=== PATIENT | male | born 1955 | race Caucasian/White ===

== ENCOUNTER 2019-02-22 09:28 | Day surgery (SDC) | payer OTHER ==
[~2019-02-22] VITALS: Ht 193 cm; Wt 135.2 kg
[~2019-02-22 09:28] MED LIST: ALDACTONE25 MG PO; ALLOPURINOL 10100 M1 PO; ARTHRITIS PAIN650 M2 PO; ASPIRIN EC81 M1 PO; ATENOLOL 100MG100 M2 PO; ATENOLOL 25 MG25 M1 PG; CARDIZEM CD120 MG PO; CARVEDILOL12.5 MG PO; CARVEDILOL6.25 MG PO; CLEOCIN HCL300 MG PO; COUMADIN 5 MG TA5 M1 PO; COZAAR 25 MG TA25 MG PO; DIASTAT2.5 MG PO; DIAZEPAM 2MG TAB2 MG PO; DIOVAN 80 MG TA80 M1 PO; DIOVAN PO; DIOVAN160 MG PO; GLUCOPHAGE500 MG PO; HTN MED; HYDROCHLOROTHIA25 M1 PO; KLOR-CON 1010 MEQ PO; LANTUSSOLASTAR SUBQ; LASIX 40 MG TAB40 M1 PO; LISINOPRIL; NEURONTIN800 MG PO; NORCO 5-325 TA1 EACH PO; NORVASC5 M1 PO; NOVOLOG100 UNIT/1 SUBQ; OXECTA7.5 MG PO; OXYCODONE; PENICILLIN VK500 M1 PO; PERCOCET 5-3251 EACH PO; PERCOCET 7.5-51 EACH PO; POTASSIUM20 PO; PRADAXA150 MG PO; PROAIR HFA8.5 GM INH; TRAMADOL 50 MG50 MG PO; TRICOR145 MG PO; ULTRAM 50MG TAB50 MG PO
[2019-02-22 10:15] VITALS: BP 142/88
--- NOTE | 2019-02-26 06:11 | O ---
[address] [place] [address] OPERATIVE REPORT Name: SIOMARA ALVAREZ Room #: DEP [facility]#: [id number] Admission: 02/22/19 Attend Phys: Efrain Barnes MD Discharge: 02/22/19 Date of : 55 Report #: [id number] THIS REPORT FOR: //name// CC: Dr. Clem Barnes DATE OF SERVICE: 02/22/2019 PREOPERATIVE DIAGNOSES: Right lower lid lesion with nasolacrimal duct obstruction. 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 PROCEDURE: Excision of lesion of right lower lid with myocutaneous flap repair of defect, silicone lacrimal intubation, and nasal surgical video endoscopy. SURGEON: Efrani Barnes MD. POWER REACTOR OPERATOR: None. ANESTHESIA: General. COMPLICATIONS: None. INDICATIONS FOR SURGERY: This pleasant 63-year-old gentleman has a cystic lesion in his medial right lower lid directly overlying his inferior canaliculus and lacrimal outflow tract inducing a secondary lacrimal outflow obstruction. He presents today for excision of this lesion with repair of that ensuing defect, silicone lacrimal intubation of his lacrimal outflow tract planned as well in order to limit his risk for chronic irreversible ____. Informed consent was obtained to include but not limited to the potential risk for loss of vision, bleeding, infection, failure to improve the problem, the potential need for further surgery or treatment. DESCRIPTION OF PROCEDURE: The patient was taken to the operating room, where general anesthesia was administered. The right medial canthal area was then anesthetized with Xylocaine with epinephrine mixed with Marcaine and Wydase. The lateral wall of the nose was then anesthetized with the same anesthetic mixture. Afrin-soaked cottonoids were then placed on the right side of the nose. The patient was subsequently prepped and draped in the usual sterile fashion. The right lower lid was then everted and the lesion inspected. An incision was then made 360 degrees around the base of the lesion and the entire cyst wall excised. The cyst was removed en bloc. The dissection was then on to the tarsal plate and the canalicular epithelium, but did not violate the [facility] [address] [place] [address] OPERATIVE REPORT Name: SIOMARA ALVAREZ Room #: DEP [facility] M.R.#: [id number] Admission: 02/22/19 Attend Phys: Efrain Barnes MD Discharge: 02/22/19 Date of : 55 Report #: [id number] canaliculus per se. The superior and inferior puncta were then dilated. A myocutaneous flap was then developed inferomedially and rotated superolaterally. The flap was then secured with interrupted 6-0 plain gut sutures. Garcia tubes were then passed through the inferior canalicular system down the nasolacrimal duct into the inferior meatus. The cottonoids were removed from the nose and the nasal vault inspected with the video endoscope. The Garcia tube was then retrieved under the inferior turbinate posteriorly with the video endoscope and a Garcia hook. The superior system was similarly cannulated and the Garcia tube retrieved in a similar manner. Tension on the tube was set with 3 square throws. The tube was then secured to the lateral wall of the nose with one 5-0 Prolene suture. The wound was then cleaned and dressed with erythromycin ophthalmic ointment. The patient subsequently transported to the recovery area having tolerated the procedure well with no anesthetic or operative complications being noted. <ELECTRONICALLY SIGNED> By: Efrain Barnes MD 02/26/19 0611 1028 1131 Efrain Barnes MD /nt
--- NOTE | 2019-02-26 17:07 | PATH ---
[facility] [address] [place] [address] PATHOLOGY RPT PROCEDURE Name: ELIAZAR MEJIAS Room #: DEP [facility].#: [id number] Admission: 02/22/19 Date of : 55 Discharge: 02/22/19 Report #: [id number] Path Case #: [id number] L[facility] Accession Number: [id number] . 01 Material submitted: . lid - LESION RIGHT LOWER LID. Modifiers: right, lower . 01 Clinical history: . Cysts of right lower eyelid . 02 Diagnosis: Skin, lesion right lower lid, excision: - Eccrine hidrocystoma. - Negative for malignancy. - Completely excised. . (IUV:mml; 02/26/2019) QL 02/26/2019 1420 Local . 02 Electronically signed: . Rekha Carrillo MD, Pathologist NPI- [id number] . 01 Gross description: . Received in formalin labeled "Eliazar Mejias, lesion right lower lid," is an ovoid segment of skin measuring 0.5 x 0.5 x 0.3 cm in greatest dimensions. The epidermal surface is raised and pale quesada in appearance. The surgical margin is inked, and the specimen is bisected and submitted entirely in cassette A1. Sectioning reveals a cystic interior cavity filled with clear, colorless fluid. (DAC; 02/23/2019) XDC/XDC 02/23/2019 1103 Local . 02 Pathologist provided ICD-10: D04.112 . 02 CPT . 638386 Specimen Comment: A courtesy copy of this report has been sent to Specimen Comment: [phone], . Specimen Comment: Report sent to / DR NICHOLSON Performed at: 01 [place] [id number] [id number] MD Martin De La O MD Phone: [phone] Performed at: 02 [facility] [address] [place] [address] PATHOLOGY RPT PROCEDURE Name: ELIAZAR MEJIAS [facility] [id number] Admission: 02/22/19 Date of : 55 Discharge: 02/22/19 Report #: [id number] Path Case #: [id number] [address] [place] [address] [id number] MD Rekha Carrillo MD Phone: [phone]
== END 2019-02-22 11:40 | disposition home or self-care (01) ==
LOC: OR 09:28 → TBA 09:34 → OR 11:40
DX: D23.112 Other benign neoplasm of skin of right lower eyelid, including canthus (principal); H04.551 Acquired stenosis of right nasolacrimal duct; I10 Essential (primary) hypertension; E11.9 Type 2 diabetes mellitus without complications; E78.5 Hyperlipidemia, unspecified; G62.9 Polyneuropathy, unspecified; K75.9 Inflammatory liver disease, unspecified; Z98.890 Other specified postprocedural states; Z79.4 Long term (current) use of insulin; Z79.899 Other long term (current) drug therapy; Z90.5 Acquired absence of kidney; Z95.810 Presence of automatic (implantable) cardiac defibrillator; Z85.528 Personal history of other malignant neoplasm of kidney
CPT/HCPCS: 50010; 50101; 50386; 50398; 51636; 51777; 56528; 56531; 62110; 62900; 64037; 70005

== ENCOUNTER 2019-05-20 12:20 | Inpatient (IN) | payer OTHER ==
[~2019-05-20] VITALS: Ht 193 cm; Wt 136.1 kg
--- NOTE | ~2019-05-20 | H ---
[facility] [address] [place] [address] HISTORY AND PHYSICAL Name: SOIMARA ALVAREZ Room #: 170-2 ADM IN M.R.#: [id number] Admission: 05/20/19 Attend Phys: Nhi Davidson MD Discharge: Date of : 55 Report #: [id number] THIS REPORT FOR: //name// CC: Clem Davidson DATE OF SERVICE: 05/20/2019 PRIMARY CARE PHYSICIAN: Dr. Clem Alcantar at [facility]. Regional Sales Coordinator at [facility]. CHIEF COMPLAINT: 1. "I have an ulcer on the foot for the last 4 months and my primary care physician referred me to fish hatchery worker; however, for the last one week, it has been significantly worse." 2. Fever and chills for the last 48 hours and increased pain in the foot. HISTORY OF PRESENT ILLNESS: The patient is a very pleasant 64-year-old gentleman with obesity, hypertension, diabetes mellitus type 2 and history of atrial fibrillation for which he had ICD implant placed and he also has cardiomyopathy history. He has been following with [facility] primary care and 4 months ago when he started noticing the ulcer on the right foot, his primary care physician referred him to the Podiatry at [facility]. The patient informs me that he has been seeing fish hatchery worker pretty regularly and last one month he has noticed an ulcer developing. He does not recall when the discoloration of the great toe happened; however, the swelling has progressively gotten worse and in last one week, he has been having fever, shaking chills or night sweats and also has not been feeling well with decreased appetite and significantly increased pain and therefore he came to the Emergency Room today. The patient informs me that for pain management, he was getting oxycodone and OxyContin from his neurosurgeon for his back; however, his neurosurgeon is not prescribing any more narcotics, so he has been off of narcotics for a long time. The patient denies any nausea, vomiting or diarrhea associated with this febrile illness. However, main concern is pain and fever and shaking chills and night sweats. Right now, he informs me that he is very uncomfortable in this Emergency Room bed and he would like to eat something as soon as possible and he also would like to use a bedside commode or the proper bathroom as he needs to micturate and he is unable to use urinal. Patient is very restless with the pain; however, is able to sit up by himself and is comfortable and communicating and is in no cardiopulmonary distress. The patient does not recall how bad is his diabetes control. He informs me that he has been keeping appointment with his primary care physician pretty regularly as well as with his fish hatchery worker as well at [facility]. The patient has not had any orthopnea or paroxysmal nocturnal dyspnea or leg edema and he denies any palpitations or any exertional chest pain or exertional dyspnea either. The patient denies any [facility] [address] [place] [address] HISTORY AND PHYSICAL Name: SIOMARA ALVAREZ Room #: 170-2 ADM IN ..#: [id number] Admission: 05/20/19 Attend Phys: Nhi Davidson MD Discharge: Date of : 55 Report #: [id number] hematochezia, hematuria or melena. He has not had any problems with any constipation or diarrhea either or dysuria, frequency or urgency of urination. REVIEW OF SYSTEMS: Also negative for weakness or numbness of any part of the body and denies any dizziness, lightheadedness, or syncopal episodes. PAST MEDICAL HISTORY: Significant for: 1. Type 2 diabetes mellitus and on insulin for a long time. 2. Hypertension. 3. Atrial fibrillation, now with ICD implant placed. 4. Cardiomyopathy. 5. History of hepatitis C. 6. Obesity with BMI 36. PERSONAL AND SOCIAL HISTORY: The patient is a lifetime nonsmoker, but uses marijuana and last use was 2 months ago and he was drinking like a fish when he was a teenager; however, has not had any alcohol for last several years. ALLERGIES: THE PATIENT IS ALLERGIC TO NAPROXEN, however, does not recall the type of allergy he had. CURRENT MEDICATIONS: Insulin, allopurinol, gabapentin, amlodipine, losartan. He does not remember the dosage. He gets his medications from the pharmacy in [facility]. PAST SURGICAL HISTORY: Significant for lacrimal duct surgery in the right eye and ICD implant. FAMILY HISTORY: Significant for mother and father both and they both smoked up to 4 packs per day and the patient informs me that there are several siblings and he is the only one alive, but does not recall any cancer in the family and is unable to tell me any medical diagnosis family members have carried. REVIEW OF SYSTEMS: Please see HPI above, 10-point review of system was done and was negative for any cardiac, respiratory, GI, or PLANER OPERATOR / GRADER symptoms and denies any blurred vision, polyuria, polydipsia, and polyphagia either. PHYSICAL EXAMINATION: VITAL SIGNS: Temperature 39.8, heart rate 71, respirations 22, blood pressure 160/70, pulse oximeter 97% on room air. GENERAL: Alert and oriented to time, place and person, very pleasant, obese gentleman with a BMI of 36.5, sitting upright and is able to lie flat as well and he is in no acute distress. HEENT: Normocephalic, atraumatic. Pupils equally round, reactive to light. Conjunctivae clear. Sclerae nonicteric. Extraocular muscle movement intact. [facility] [place] [address] HISTORY AND PHYSICAL Name: SIOMARA ALVAREZ Room #: 170-2 [facility] M.R.[facility] [id number] Admission: 05/20/19 Attend Phys: Nhi Davidson MD Discharge: Date of : 55 Report #: [id number] Oropharynx is clear. Mucous membranes moist. NECK: Supple, no JVD, no lymphadenopathy, no thyromegaly. HEART: S1, S2, regular. No murmur, no S3, no S4. LUNGS: Clear to auscultation bilaterally without any crackles or wheezes. The patient has good air entry. ABDOMEN: Soft, nontender, nondistended, obese, normal active bowel sounds. No mass palpable on clinical examination. EXTREMITIES: The patient's left lower extremity with trace edema. SKIN: Exam is intact. Right lower extremity, the patient has gangrenous right toe and right foot is swollen at the dorsum as well as plantar surface with the ulcers noted on the plantar surface of the foot. Three different ulcers noted with no active drainage at the present time, but significant edema and erythema noted and the swelling extending all the way above the ankle and it is hard to evaluate pedal pulses, but skin is warm. Except the gangrenous toe, the gangrene is extending all the way up to the base of great toe. NEUROLOGIC: Nonfocal. LABORATORY DATA: 1. The patient has a WBC elevated at 20,600 with segmented neutrophil 92% and 1% band neutrophils, hemoglobin is 11.1, hematocrit 34.7, RDW elevated at 16.4. The red cell indices are within normal limits. Platelet count is 309. 2. Chemistries indicate sodium 129, potassium 3.7, chloride 94, bicarbonate 23, anion gap 12, BUN 28, creatinine 2.0, estimated GFR is 34, glucose is elevated at 430. Lactic acid is normal at 1.7, calcium 9.2, total bilirubin 1.0, AST 30, ALT 22, alkaline phosphatase 117. C-reactive protein is markedly elevated at 334.9, total protein 8.3, albumin 2.3. Urine culture is pending and the anaerobic culture, Gram stain, aerobic and anaerobic tissue culture is pending and blood culture is pending. 3. X-ray of the foot indicates extensive subcutaneous emphysema and soft tissue gas around the great toe extending along the medial margin of the foot into the mid foot and ulceration along the plantar medial aspect adjacent to the first metatarsophalangeal joint and osteomyelitis and there is no periosteal reaction to suggest osteomyelitis. There is a compression plate and screw transfixing the lateral malleolus about which the patient had not mentioned in the history taking. 4. Chest x-ray is pending at the time of dictation. An electrocardiogram is pending at the time of dictation. ASSESSMENT AND PLAN: 1. Right toe gangrene and right foot extensive cellulitis and possible osteomyelitis and abscess. 2. Poorly controlled diabetes mellitus. 3. Poorly controlled hypertension. 4. Acute renal insufficiency with likely component of underlying chronic kidney disease. 5. Anemia, likely anemia of chronic disease. [facility] [address] [place] [address] HISTORY AND PHYSICAL Name: SIOMARA ALVAREZ Room #: 170-2 ADM IN ..#: [id number] Admission: 05/20/19 Attend Phys: Nhi Davidson MD Discharge: Date of : 55 Report #: [id number] 6. History of cardiomyopathy with last echocardiogram that we have on record is from 2012 indicating ejection fraction of 20% with severe global dysfunction. 7. Abnormal sleep study untreated. 8. The patient wishes to be full code. PLAN: 1. The patient has been started on Zosyn and vancomycin in the Emergency Room after the blood cultures have been sent from the ER. I have ordered an arterial Doppler study to evaluate the circulatory status in right lower extremity. The patient is a very high risk for any peripheral arterial disease with longstanding poorly controlled diabetes as well as hypertension and cardiomyopathy as an underlying comorbidity. It does not appear that the patient is in acute CHF exacerbation by symptoms as well as by clinical exam. Pharmacy has been consulted for vancomycin dosing in the setting of acute renal insufficiency with underlying chronic kidney disease. 2. For diabetes, hemoglobin A1c has been requested and Lantus as well as sliding scale insulin high dose has been started. The patient has a normal anion gap and hyperglycemia, however, is contributing likely to the hyponatremia indicated on the chemistry. We will go ahead and repeat labs tomorrow morning and we will give gentle IV fluid with extreme caution, accurate intake and output as we do not have the most recent ejection fraction. The last echo is from 2012 as dictated above and echocardiogram and electrocardiogram have been requested. 3. For hypertension, the patient is on losartan as well as amlodipine. I would go ahead and put hydralazine as IV q. 6 hours p.r.n. and resume his amlodipine. I will hold losartan in the setting of creatinine being elevated at 2.0 with a GFR of 34 since we do not have his baseline creatinine and also MRI of the foot has been ordered as well. Infectious Disease and Orthopedic consult along with a wound care consult has been in place and full code order has been written and I would go ahead and put heparin 5000 b.i.d. for DVT prophylaxis and Pepcid renal dose for GI prophylaxis. Plan of care was discussed with the patient in detail. By: 1632 1659 Nhi Davidson MD /nt
[2019-05-20 12:27] VITALS: BP 160/70
[2019-05-20 13:36] LABS: HEMATOCRIT 34.7 % (42.0-52.0); HEMOGLOBIN 11.1 gm/dL (14.0-18.0); MCH 28.7 pg (26.0-34.0); MCHC 32.1 g/dL (28.0-37.0); MCV 89.5 fL (80.0-100.0); PLATELET COUNT 309 thou/uL (150-400); RBC 3.87 mil/uL (4.50-6.00); RDW 16.4 % (10.5-14.5); WBC 20.6 thou/uL (4.0-11.0)
--- NOTE | 2019-05-20 13:56 | NUR ---
NIGEL (S0) [phone] CONTACT INFO
[2019-05-20 13:57] LABS: CALCIUM 9.2 mg/dL (8.5-10.1); POTASSIUM 3.7 mmol/L (3.5-5.1)
[2019-05-20 14:00] LABS: ABSOLUTE NEUTROPHILS 19.2 thou/uL (1.4-8.2); ATYPICAL LYMPHS 1 %
[2019-05-20 14:01] LABS: ANISOCYTOSIS 1+
[2019-05-20 14:02] LABS: ALBUMIN 2.3 g/dL (3.4-5.0); TOTAL PROTEIN 8.3 g/dL (6.4-8.2)
[2019-05-20 16:22] LABS: URINE BILIRUBIN NEGATIVE (Negative); URINE BLOOD 3+ (Negative); URINE CLARITY CLEAR; URINE COLOR YELLOW; URINE GLUCOSE-RANDOM* 3+ (Negative); URINE KETONES NEGATIVE (Negative); URINE LEUKOCYTES NEGATIVE (Negative); URINE NITRITE NEGATIVE (Negative); URINE PROTEIN (DIPSTICK) 3+ (Negative)
[2019-05-20 16:36] LABS: CASTS None Seen /LPF (None Seen); MUCUS 0-3 Light strn/LPF (None Seen); SQUAMOUS 4-10 Moderate /LPF (0-3)
[2019-05-20 16:37] LABS: URINE RBC 3-10 Few /HPF (0-2)
[2019-05-20 16:38] LABS: BACTERIA 1-9 Few /HPF (None Seen); CRYSTALS None Seen /LPF (None Seen); URINE WBC 6-15 Few /HPF (0-5)
[2019-05-20 18:48] VITALS: BP 175/87
--- NOTE | 2019-05-20 21:00 | NUR ---
Pt. admitted to the unit from the emergency room accompanied by staff. He is alert and oriented. Admission assessment and history is completed. Bed alarm is on.
[2019-05-21 03:22] VITALS: BP 129/58
--- NOTE | 2019-05-21 04:51 | NUR ---
Pt. rested at short intervals during the night when checked on during frequent rounds. He has been medicated for c/o pain to his right great toe (see emar) with some relief of pain noted. Has several wounds to his right foot and it does have a strong foul odor present (see poc). Up to the bedside comode with stand by assist. Bed alarm is on.
--- NOTE | 2019-05-21 06:00 | NUR ---
Pt. bed alarm sounded as he was going to sit up at the side of the bed. When this nurse entered the room he became beligerent and said leave that thing off. Pt. is non-compliant with the bed alarm.
[2019-05-21 06:20] LABS: ABSOLUTE NEUTROPHILS 15.6 thou/uL (1.4-8.2); BASOPHILS 0.4 % (0.0-2.0); EOSINOPHILS 0.1 % (0.0-3.0); HEMATOCRIT 31.3 % (42.0-52.0); HEMOGLOBIN 10.2 gm/dL (14.0-18.0); LYMPHOCYTES 5.5 % (24.0-44.0); MCHC 32.5 g/dL (28.0-37.0); MCV 89.3 fL (80.0-100.0); MONOCYTES 4.8 % (1.0-8.0); PLATELET COUNT 260 thou/uL (150-400); POLYS 89.2 % (36.0-66.0); RBC 3.51 mil/uL (4.50-6.00); RDW 16.1 % (10.5-14.5); WBC 17.5 thou/uL (4.0-11.0)
[2019-05-21 06:39] LABS: ALBUMIN 1.9 g/dL (3.4-5.0); CALCIUM 8.2 mg/dL (8.5-10.1); CREATININE 1.8 mg/dL (0.7-1.3); MAGNESIUM 1.2 mg/dL (1.8-2.4); PHOSPHORUS 1.9 mg/dL (2.5-4.9); POTASSIUM 3.4 mmol/L (3.5-5.1); TOTAL BILIRUBIN 0.8 mg/dL (<0.1-1.0); TOTAL PROTEIN 7.3 g/dL (6.4-8.2)
[2019-05-21 08:00] VITALS: BP 159/82
--- NOTE | 2019-05-21 09:59 | NUR ---
Nutrition: pt admitted with right great toe ulcer/infection. Wound care consulted. PMH: HTN, IDDM (poorly controlled), hep C, cardiomyopathy, nephrectomy. BMI 36, obesity class 2. No recent weight changes. Decreased appetite past week reported. BG 142-303, A1C pending. Ate well this am, and was asking for more juice however RD discouraged due to BG. Does not follow diet at home and is not interested in education. Nsg reports pt beligerant and having difficulties with some cares. RD encouraged adequate protein foods/sources for wound healing. Refused ensure max. Consider low risk.
--- NOTE | 2019-05-21 10:24 | EKG ---
[place] [address] [facility] [place] [address] ELECTROCARDIOGRAM REPORT Name: SIOMARA ALVAREZ Room #: 455- ADM IN M.R.#: [id number] Admission: 05/20/19 Attend Phys: Nhi Davidson MD Discharge: Date of : 55 Report #: [id number] THIS REPORT FOR: //name// [facility] Test Date: 2019-05-21 Test Time: 08:52:59 Pat Name: SIOMARA ALVAREZ Department: Room: 455 P Gender: M General Counselor: Rubén FULLER : 1955 Requested By: Nhi Davidson Order Number: [id number] MD: Favian Morales Measurements Intervals [place] Rate: 72 P: 0 CA: 224 QRS: 265 QRSD: 153 T: 87 QT: 446 QTc: 489 Interpretive Statements Ventricular-paced rhythm No further analysis attempted due to paced rhythm Compared to ECG 09/24/2013 17:45:41 Ventricular pacing is now present Electronically Signed On 05-21-2019 10:24:19 HEAD SHIPPER by Favian Morales [email or web address] <ELECTRONICALLY SIGNED> By: Favian Morales MD, [facility] 05/21/19 [phone] Favian Morales MD, [facility] /EPI
--- NOTE | 2019-05-21 13:46 | 2DMMODE ---
[facility] [place] [address] 2 D/M-MODE ECHOCARDIOGRAM Name: SIOMARA ALVAREZ Stephany Room #: 455-P [facility] IN ..#: [id number] Admission: 05/20/19 Attend Phys: Nhi Davidson, Discharge: Date of : 55 Report #: [id number] THIS REPORT FOR: //name// APPROVED REPORT Study performed: 05/21/2019 12:10:37 EXAM: Comprehensive 2D, Doppler, and color-flow Echocardiogram Patient Location: Bedside Room #: [facility] Status: routine BSA: 2.61 HR: 76 bpm BP: 129/58 mmHg Other Information Study Quality: Technically Difficult Technically limited study due to body habitus, machine malfunction unable to finish optison images. Indications Diabetes Hypertension/HDD ICD Echo Enhancing Agent Indication: Endocardial border delineation Agent(s) / Amount(s) Used: Optison 4 cc 2D Dimensions RVDd: 50.70 mm IVSd: 14.90 (7-11mm) LVOT Diam: 23.81 (18-24mm) LVDd: 54.00 mm PWd: 14.61 (7-11mm) Ascending Ao: 37.56 (22-36mm) LVDs: 38.54 (25-40mm) Aortic Root: 36.92 mm IVC: 28.00 mm Volumes Left Atrial Volume (Systole) Single Plane 4CH: 105.96 mL Single Plane 2CH: 119.60 mL LA ESV Index: 45.00 mL/m2 Aortic Valve AoV Peak Dc.: 1.48 m/s [facility] [address] [place] [address] 2 D/M-MODE ECHOCARDIOGRAM Name: SIOMARA ALVAREZ Stephany Room #: 455-P [facility]#: [id number] Admission: 05/20/19 Attend Phys: Nhi Davidson, Discharge: Date of : 55 Report #: [id number] AO Peak Gr.: 8.75 mmHg LVOT Max P.39 mmHg LVOT Max V: 0.92 m/s HAILE Vmax: 2.77 cm2 Mitral Valve MV Decel. Time: 191.73 ms MV E Max Dc.: 1.35 m/s IVRT: 48.44 ms Pulmonary Valve PV Peak Dc.: 0.82 m/s PV Peak Gr.: 2.68 mmHg Tricuspid Valve TR Peak Dc.: 3.08 m/s RAP Estimate: 15.00 mmHg TR Peak Gr.: 37.91 mmHg PA Pressure: 53.00 mmHg Left Ventricle Left ventricle is borderline dilated. There is normal LV segmental wall motion. Moderate concentric left ventricular hypertrophy. The left ventricular systolic function is normal. The left ventricular ejection fraction is within the normal range. LVEF is 55-60%. This study is not technically sufficient to allow evaluation of the LV diastolic function due to atrial fibrillation. Right Ventricle Right ventricle is moderately dilated. Pacing wires in the right heart The right ventricular systolic function is normal. Atria Left atrium is moderate to severely dilated. Right atrium is severely dilated. Aortic Valve The aortic valve is normal in structure. Mild aortic regurgitation. There is no aortic valvular stenosis. Mitral Valve The mitral valve is normal in structure. Mild mitral regurgitation. No evidence of mitral valve stenosis. Tricuspid Valve The tricuspid valve is normal in structure. Moderate tricuspid regurgitation. PAP is estimated at 50 mmHg. Pulmonic Valve [facility] [address] [place] [address] 2 D/M-MODE ECHOCARDIOGRAM Name: SIOMARA ALVAREZ Stephany Room #: 455-P [facility] IN .R.#: [id number] Admission: 05/20/19 Attend Phys: Nhi Davidson, Discharge: Date of : 55 Report #: [id number] Pulmonic valve is not well visualized. There is no pulmonic valvular regurgitation visualized. Great Vessels The aortic root is normal in size. IVC is dilated and collapses <50% with inspiration. Pericardium There is no pericardial effusion. <Conclusion> The left ventricular systolic function is normal. There is normal LV segmental wall motion. LVEF is 55-60%. Both atria are moderate to severely dilated. The aortic valve is normal in structure. Mild aortic regurgitation, no stenosis. The mitral valve is normal in structure. Mild mitral regurgitation. Moderate tricuspid regurgitation. Pulmonary artery pressure estimated at 50 mmHg. There is no pericardial effusion. <ELECTRONICALLY SIGNED> By: Favian Morales MD, FACC 05/21/19 1345 1345 1345 Favian Morales MD, FAC /INF
--- NOTE | 2019-05-21 14:10 | NUR ---
PT ADMITTED RELATED TO RIGHT GREAT TOE INFECTION. CM REVIEWED CHART AND SPOKE WITH CARE TEAM. CM MET WITH PT AT BEDSIDE THIS DAY. PT IS A&O X4. CM ROLE INTRODCUED. PT INDICATED THAT HE RESIDES IN AN APARTMENT AT [facility]. 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 PT INDICATED HE HAD GOTTEN HIS SCOOTER THROUGH THE SCOOTER STORE IN 2010 AND THAT THE BATTERIES HAD RECENTLY GONE OUT ON IT. PT INDICATED HE HOPES TO BE ABLE TO RETURN HOME ONCE MEDICALLY STABLE. CM TO FOLLOW INDICATED WITH DC PLANNING.
[2019-05-21 20:05] VITALS: BP 141/51
--- NOTE | 2019-05-21 20:10 | NUR ---
Assumed pt care this am, pt refused to have bed alam on and would become beligerent. Wound care done everal times during the day. MRI not doene due to implanted device. Pt would have tantrums and wound want his IV off, not take his meds, or wanting to walk out since he was not getting what he wants when he wants. Explained the process of AMA, pt was seen by Mary Jo for surgery adair, consent signed. POC followed, [id number] to the night nurse.
[2019-05-22 05:30] LABS: ABSOLUTE NEUTROPHILS 14.7 thou/uL (1.4-8.2); BASOPHILS 0.6 % (0.0-2.0); EOSINOPHILS 0.5 % (0.0-3.0); HEMATOCRIT 30.5 % (42.0-52.0); HEMOGLOBIN 9.9 gm/dL (14.0-18.0); LYMPHOCYTES 7.4 % (24.0-44.0); MCH 29.2 pg (26.0-34.0); MCHC 32.5 g/dL (28.0-37.0); MCV 89.9 fL (80.0-100.0); MONOCYTES 4.5 % (1.0-8.0); PLATELET COUNT 301 thou/uL (150-400); RDW 16.3 % (10.5-14.5); WBC 16.9 thou/uL (4.0-11.0)
--- NOTE | 2019-05-22 06:45 | NUR ---
PROGRESS PT A/O X4 IRRITABLE. FALL PRECAUTIONS IN PLACE PT IS A FALL RISK D/T FALL AT HOME. IV ANTIBIOTICS GIVEN ORDERED. TAKING FENTANYL FOR PAIN , OXYCODONE BEFORE NPO. ACCUCHECKS AND SSI CONTINUE. TO HAVE PROCEDURE TODAY CONSENT ON FRONT OF CHART.
[2019-05-22 07:40] VITALS: BP 134/71
--- NOTE | 2019-05-22 15:51 | NUR ---
Assumed pt care at 7am.Pt in chair very irritable and cursing at alltimes. Assessment completed.vss.pt c/o rt foot pain rated 9/10. Pain med given and no relief.Additional pain med given.Pt has complaining kennedi stated that he wanted to leave ama but after rn discussed the care option with the pt,he decided to stay.Received call from operating room that pt will be going for surgery between 3&4pm.Around 1438,pt left per bed for surgery.Will continue to monitor.
--- NOTE | 2019-05-22 19:27 | O ---
[facility] [address] [address] OPERATIVE REPORT Name: SIOMARA ALVAREZ Room #: 455-P ADM IN M.R.#: [id number] Admission: 05/20/19 Attend Phys: Nhi Davidson MD Discharge: Date of : 55 Report #: [id number] THIS REPORT FOR: //name// CC: Clem Davidson DATE OF SERVICE: 05/22/2019 SERVICE: Orthopedics. FACILITY: [facility]. SURGEON: Marcel Camargo MD DATA ANALYST: Guera Hardy NP. PREOPERATIVE DIAGNOSIS: Gangrene, right first toe with first ray osteomyelitis involving the metatarsal. POSTOPERATIVE DIAGNOSIS: Gangrene, right first toe with first ray osteomyelitis involving the metatarsal. PROCEDURES: 1. Right open first ray amputation. 2. Application of negative pressure wound VAC to right foot, 11 cm x 5 cm. COMPLICATIONS: None. DRAINS: None. SPECIMENS: 1. Great toe for permanent 2. Tissue and swab cultures. HISTORY: The patient is a 64-year-old gentleman with uncontrolled diabetes, who had a right forefoot diabetic wound that led to gangrene of the first toe and first ray osteomyelitis. He had a CT scan, which showed some gas in the soft tissues and osteomyelitis. We had discussion about treatment options. I recommended first toe/ray amputation as a minimum. We also discussed mid foot transmetatarsal amputation as well as below-knee amputation. He had vascular studies, which showed biphasic flow and suggested that he could heal the wound distally. He was interested in only resecting the necrotic tissue and preserving all toes that were not currently involved and he gave consent to perform first toe amputation, second toe amputation only if there was an infection and necrosis of the second toe or ray. That being said, we made plans for first ray amputation, debridement and application of wound VAC. [facility], [facility] [address] [place] [address] OPERATIVE REPORT Name: SIOMARA ALVAREZ Room #: 455-P [facility] IN [facility].#: [id number] Admission: 05/20/19 Attend Phys: Nhi Davidson MD Discharge: Date of : 55 Report #: [id number] benefits, alternatives and indications of surgery were discussed with him in detail. Risks include but not limited to pain, bleeding, infection, persistence, need for further surgery including higher level of amputation up to and including below-knee amputation, need for extended period of wound care as well as rehabilitation and recovery as well as complications related to anesthesia such as stroke, heart attack, pulmonary complications, thromboembolic disease and . Despite these risks, he wished to proceed. PROCEDURE IN DETAIL: After the right lower extremity was correctly identified in preoperative holding area as the operative extremity, the patient was taken to the operating room where general anesthesia was induced without complication. He was padded appropriately. Prophylactic antibiotics are being initiated as an inpatient treatment and had been redosed as indicated. Right leg was prepped and draped in standard sterile fashion. Time-out procedure was performed. The necrotic great toe was excised sharply and then dissection was taken down to the first metatarsal, which was dissected to proximal healthy appearing bone and then a bone cutter was used to resect the first metatarsal at the proximal metaphysis and then it was contoured. The skin was excised as well. There was a primarily medial and plantar defect and there was pus in this area and the pus was explored and decompressed and then irrigated. All necrotic tissue was excised sharply and/or with a rongeur. I preserved as much healthy and intact skin and soft tissue as possible. There was no violation of the second metatarsal or the second metatarsophalangeal joint. The second, third, fourth and fifth toes were healthy in appearance. After the sharp excision was completed, hemostasis was achieved. The wound was copiously. We thoroughly explored all areas to make sure there was no additional purulence. There was some purulence that had initially been present plantarly and then extending proximally. This was all decompressed and irrigated and uncovered. After the wound was clean, there was no residual foul smelling tissue. There was no residual necrotic tissue. I was able to get a deep layer closed with #1 PDS over the first metatarsal remnant, which suggested that there is a possibility for wound care to allow for progressive healing of this wound. After this was completed, a silver impregnated negative pressure wound VAC was applied. The surface area measuring 11 cm x 5 cm. After this was applied, successful negative pressure was achieved and the wound was dressed. The patient was awakened from anesthesia and taken to recovery room in stable condition. No complications. All counts correct. <ELECTRONICALLY SIGNED> By: Marcel Camargo MD 05/22/19 [id number] 184 Marcel Camargo MD /nt
[2019-05-22 19:43] VITALS: BP 133/69
--- NOTE | 2019-05-22 21:51 | HC ---
[facility] [address] [place] [address] CONSULTATION Name: SIOMARA ALVAREZ Room #: 455-P [facility] IN .R.#: [id number] Admission: 05/20/19 Attend Phys: Nhi Davidson MD Discharge: Date of : 55 Report #: [id number] THIS REPORT FOR: //name// CC: Clem Davidson DATE OF SERVICE: 05/21/2019 INFECTIOUS DISEASE CONSULTATION REASON FOR CONSULTATION: Evaluate right foot gangrene. HISTORY OF PRESENT ILLNESS: A 64-year-old diabetic with peripheral vascular disease and peripheral neuropathy in addition to cardiomyopathy. Over the last 4 months, he has had ulcer to the plantar midfoot of his right foot. He had been seeing Podiatry for this wound care. Last week, he developed increased pain, swelling and discoloration of his right first toe. He noted that his blood glucose levels had been reasonable. However, he developed fever and chills and presented to the Emergency Room for further evaluation. He was diagnosed with gangrene and was seen by Orthopedic Surgery. Plan is for surgery to be performed tomorrow. He denies any nausea, vomiting or diarrhea. No dysuria or frequency. No cough or sputum production. REVIEW OF SYSTEMS: A 10-point review of system was negative other than what has been described above. PAST MEDICAL HISTORY: Diabetes; hypertension; atrial fibrillation; cardiomyopathy, ICD implant; hepatitis C; obesity; lacrimal duct surgery, right eye and chronic kidney disease with unilateral solitary kidney. FAMILY HISTORY: Noncontributory. SOCIAL HISTORY: Uses marijuana, past alcohol abuse. ALLERGIES: NAPROSYN. MEDICATIONS: As noted on his JUL, which were reviewed including vancomycin and Zosyn. PHYSICAL EXAMINATION: VITAL SIGNS: Afebrile with maximum temperature of 103 degrees yesterday, hemodynamically stable. GENERAL: Alert and cooperative. No acute distress. EXTREMITIES: Right foot had gangrene with black toe and tissues over the first metatarsal head. There was odorous drainage. He had erythema extending over the forefoot up to the ankle. There was a blister and ulceration over the [facility] [address] [place] [address] CONSULTATION Name: SIOMARA ALVAREZ Stephany Room #: 455-P [facility] IN M.R.#: [id number] Admission: 05/20/19 Attend Phys: Nhi Davidson MD Discharge: Date of : 55 Report #: [id number] plantar aspect of his mid foot medially. He had diminished pulses in his foot. Decreased sensation to touch. Pulses were palpable in the popliteal and femoral region. He had 2+ edema below the knee. EYES: Without scleral icterus. MOUTH: Without mucositis. NECK: Supple. LUNGS: Clear. HEART: Regular, without murmur, gallop or rub. ABDOMEN: Soft and nontender with no hepatosplenomegaly or mass appreciated. GENITORECTAL: Not performed. NEUROLOGIC: Cranial nerves intact. Examination of lower extremities as noted. PSYCHIATRIC: Mood normal. LABORATORY STUDIES: Reviewed. Cultures reviewed. CT scan of the right foot reviewed. Arterial ultrasound reviewed. IMPRESSION: A 64-year-old with underlying diabetes, peripheral vascular disease and peripheral neuropathy, presents with right great toe gangrene with associated osteomyelitis of the first toe and metatarsal head. There were gangrenous changes of the medial forefoot and soft tissues without evidence of abscess on CT scan. The patient has chronic kidney disease, hypertension, atrial fibrillation, cardiomyopathy, hepatitis C and chronic back pain. RECOMMENDATIONS: We will continue broad antibiotic coverage pending culture results. Orthopedic Surgery for amputation. Control blood glucose. <ELECTRONICALLY SIGNED> By: Khurram Jett MD 05/22/19 [phone] Khurram Jett MD /nt
--- NOTE | 2019-05-23 03:20 | NUR ---
ASSUMED CARE OF PT AT 1900HRS. PT IS AOX4 AND LETS NEEDS BE KNOEN. FALL PRECAUTION IN PLACE. PT IS POST OP DAY 0. PT COMPLAINED OF PAIN AND WAS TREATED WITH PRN PAIN MEDS. ABX TREATMENT CONTINUED. WOUND VAC IN PLACE. PT USED BSC THIS SHIFT. PT REFUSED INSULIN AND SOME SERVICES. PT WAS ABLE TO GET COMFORTABLE AND SLEEP PART OF THE SHIFT. PT IS KNOWN TO BE RUDE TO STAFF. PT REQUESTED A DIFFERENT NURSE IN THE AM. VSS AND NO S/S OF AUTE DISTRESS. WILL CONTINUE TO MONITOR.
[2019-05-23 05:07] VITALS: BP 142/68
[2019-05-23 05:52] LABS: ABSOLUTE NEUTROPHILS 10.1 thou/uL (1.4-8.2); BASOPHILS 0.4 % (0.0-2.0); EOSINOPHILS 0.8 % (0.0-3.0); HEMATOCRIT 29.5 % (42.0-52.0); HEMOGLOBIN 9.6 gm/dL (14.0-18.0); LYMPHOCYTES 7.6 % (24.0-44.0); MCH 29.2 pg (26.0-34.0); MCHC 32.5 g/dL (28.0-37.0); MCV 89.9 fL (80.0-100.0); MONOCYTES 5.4 % (1.0-8.0); PLATELET COUNT 304 thou/uL (150-400); POLYS 85.8 % (36.0-66.0); RBC 3.28 mil/uL (4.50-6.00); RDW 16.2 % (10.5-14.5); WBC 11.8 thou/uL (4.0-11.0)
[2019-05-23 06:20] LABS: CREATININE 1.8 mg/dL (0.7-1.3); POTASSIUM 3.8 mmol/L (3.5-5.1)
[2019-05-23 07:25] VITALS: BP 138/73
[2019-05-23 07:38] VITALS: BP 138/73
--- NOTE | 2019-05-23 07:50 | NUR ---
PT EXTREMELY UPSET THIS MORNING CUSSING STATING HE WANTS TO BE DISCHARGED TODAY!. PT REFUSED TO TAKE ANY INSULIN, "STATES HE CAN GET THAT AT HOME" WOUND VAC IN PLACE TO RIGHT FOOT. PRN PAIN MEDICATION GIVEN, BUT STATES "THIS CRAP IS NOT WORKING". WILL CONTINUE TO MONITOR.
--- NOTE | 2019-05-23 13:41 | NUR ---
PT HAS EXPRESSED THAT HE PLANS TO LEAVE LATER THIS AFTERNOON. PT HAS A WOUND VAC, WILL NEED CONTINUED WOUND CARE, AND IV ANTIBIOTICS. CM MET WITH PT AT BEDSIDE AND EXPLAINED THAT A VAC WOULD NEED TO BE ORDERED FOR HOME USE AND THAT CM COULD SEND INFO TO A HOME INSUSION COMPANY AND A PROVIDER FOR NURSING. OTHER OPTION WOULD BE FOR PT TO GO TO AN ACUTE REHAB FACILITY. PT INDICATED HE DIDN'T WANT TO GO ANYWHERE BUT HOME. CM SPOKE WITH [facility] AND [facility] AND THEY INDICATED THEY WOULD LOOK INTO HOME VAC. CM SPOKE WITH DR. IRIS OCAMPO AND HE INDICATED HE IS STILL AWAITING CULTURES AND THAT PT IS ONLY POD#1 NOT READY FOR DC. CM FAXED REFERRAL TO [facility] WITH PT'S PERMISSION. CM TO FAX REFERRAL TO [facility]. CM TO FOLLOW INDICATED WITH DC PLANNING.
--- NOTE | 2019-05-23 16:49 | NUR ---
WOUND CONSULT; THE LEFT FOOT SURGICAL WOUNDS WERE ASSESSED. THE WOUND IS STABLE. THERE REMAINS SOME SLOUGH IN THE WOUND BED. THE PATIENT IS DEMANDING DISCHARGE AND IS ADAMENT ABOUT LEAVING AMA. DR CUNNINGHAM DISCUSSED THE OPTIONS AND OPPORTUNITY TO SAY; THE PATIENT REFUSED. THE WOUND WAS PICTURED CLEANED AND PACK WITH SALINE MOIST GAUZE, WARPPED WITH KERLIX. SUPPLIES WERE PROVIDED FOR SEVERAL DAYS OF DRESSING CHANGES. DISCUSSED WITH STAFF
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
== END 2019-05-23 15:34 | disposition left against medical advice (07) | DRG 854 ==
LOC: ER 12:20 → EROBS 15:04 → 4W 21:30
PROVIDERS: Orthopaedic Surgery Sports Medicine; Physician Assistant; ADMIT Internal Medicine
PROC: 0Y6M0Z9 Detachment at Right Foot, Partial 1st Ray, Open Approach (ICD-10-PCS; principal; 2019-05-22)
DX: A41.9 Sepsis, unspecified organism (principal); E11.52 Type 2 diabetes mellitus with diabetic peripheral angiopathy with gangrene; I96 Gangrene, not elsewhere classified; N17.9 Acute kidney failure, unspecified; M86.8X8 Other osteomyelitis, other site; I42.9 Cardiomyopathy, unspecified; L03.115 Cellulitis of right lower limb; I13.0 Hypertensive heart and chronic kidney disease with heart failure and stage 1 through stage 4 chronic kidney disease, or unspecified chronic kidney disease; E78.5 Hyperlipidemia, unspecified; I48.91 Unspecified atrial fibrillation; E11.69 Type 2 diabetes mellitus with other specified complication; E66.9 Obesity, unspecified; E11.22 Type 2 diabetes mellitus with diabetic chronic kidney disease; N18.9 Chronic kidney disease, unspecified; F12.90 Cannabis use, unspecified, uncomplicated; E11.42 Type 2 diabetes mellitus with diabetic polyneuropathy; G89.29 Other chronic pain; M54.9 Dorsalgia, unspecified; I50.9 Heart failure, unspecified; E11.65 Type 2 diabetes mellitus with hyperglycemia; D64.9 Anemia, unspecified; B19.20 Unspecified viral hepatitis C without hepatic coma; Z53.29 Procedure and treatment not carried out because of patient's decision for other reasons; Z79.4 Long term (current) use of insulin; Z90.5 Acquired absence of kidney; Z95.0 Presence of cardiac pacemaker; Z88.8 Allergy status to other drugs, medicaments and biological substances; Z68.36 Body mass index [BMI] 36.0-36.9, adult
CPT/HCPCS: 10040; 50010; 50101; 50386; 50643; 50970; 56525; 57091; 62110; 62900; 70005

== ENCOUNTER 2021-05-16 11:02 | Emergency (ER) | payer OTHER ==
[~2021-05-16] VITALS: Ht 190.5 cm; Wt 125.7 kg
[2021-05-16 11:07] VITALS: BP 122/84
[2021-05-16 15:17] LABS: HEMATOCRIT 34.7 % (42.0-52.0); HEMOGLOBIN 11.3 gm/dL (14.0-18.0); MCH 25.6 pg (26.0-34.0); MCHC 32.5 g/dL (28.0-37.0); RBC 4.4 mil/uL (4.50-6.00); RDW 17.4 % (10.5-14.5); WBC 8.4 thou/uL (4.0-11.0)
[2021-05-16 15:38] LABS: CALCIUM 9.2 mg/dL (8.5-10.1); CREATININE 1.5 mg/dL (0.7-1.3); POTASSIUM 4.2 mmol/L (3.5-5.1)
[2021-05-16 15:44] LABS: ALBUMIN 2.7 g/dL (3.4-5.0); TOTAL BILIRUBIN 0.3 mg/dL (0.2-1.0); TOTAL PROTEIN 7.5 g/dL (6.4-8.2)
== END 2021-05-16 16:19 ==
LOC: ER 11:02
PROVIDERS: Nurse Practitioner Family
DX: M67.431 Ganglion, right wrist (principal); M89.8X4 Other specified disorders of bone, hand; M25.731 Osteophyte, right wrist; I10 Essential (primary) hypertension; E11.9 Type 2 diabetes mellitus without complications; E78.5 Hyperlipidemia, unspecified; G62.9 Polyneuropathy, unspecified; I48.91 Unspecified atrial fibrillation; B19.20 Unspecified viral hepatitis C without hepatic coma; Z79.4 Long term (current) use of insulin; Z79.899 Other long term (current) drug therapy; Z88.8 Allergy status to other drugs, medicaments and biological substances